=== PATIENT | female | born 1990 | race American Indian/Alaskan Native ===

== ENCOUNTER 2016-03-21 02:30 | Inpatient (IN) | payer MEDICAID ==
[2016-03-21] MEDS ORDERED: CYTOTEC ONE (02:46)
[2016-03-21] MEDS: PITOCin/NS 20 UNIT/1000ML DRIP 1,000 ML IV SCH ×2 (02:48→04:02)
--- NOTE | 2016-03-21 03:00 | Procedure Note ---
OB Delivery Note - Delivery Date of Delivery: 03/21/16 Surgeon: DAVID GALVAN Estimated blood loss: 100cc - Vaginal Delivery presentation: vertex Delivery position: OA Intrapartum events: precipitous labor- <3hr Delivery induction: none Delivery monitor: external FHT Route of delivery: Delivery placenta: spontaneous Delivery cord: 3 umbilical vessels Episiotomy: none Delivery laceration: 1st degree (Not bleeding not repaired) Anesthesia: none - Infant A at 1 minute: 8 at 5 minutes: 9 Gender: Male (Del @ 02:42 AM, infant weight is 8# 8 or 3848 gms)
--- NOTE | 2016-03-21 03:11 | History and Physical Report ---
History of Present Illness Date of examination: 03/21/16 Date of admission: 03/21/16 02:30 Chief complaint: Active labor fully dilated History of present illness: 25-year-old status post precipitous delivery at 40 weeks gestation (DARIEN 03/19/16 per pt); care was at [facility]. Records available at this time history from patient. Essential history this patient is late presentation at ~ 24 weeks, she moved from [place] one year ago. She presented to [facility] fully dilated and subsequently delivered. 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 denies: alcohol abuse, prescription drug abuse, IV drug use - Obstetrical History Expected Date of Delivery: 03/19/16 Actual Gestation: 40 Week(s) 2 Day(s) : 6 Para: 6 Number of Living Children: 5 (s/p SIDS at ~ 2 months) Review of Systems Cardiovascular: no chest pain, no lightheadedness, no shortness of breath Respiratory: no excessive sputum, no hemoptysis, no shortness of breath, no dyspnea on exertion Gastrointestinal: no abdominal pain, no nausea, no vomiting - Vital Signs Vital signs: Vital Signs Pulse Pulse Ox 85 88 03/21/16 02:42 03/21/16 02:42 Temp Pulse Resp BP Pulse Ox 76 129/58 88 03/21/16 02:56 03/21/16 02:56 03/21/16 02:42 - Physical Exam Genitourinary (Female): Positive: normal external genitalia Results All other labs normal. Assessment and Plan PPD# 0 s/p PPT delivery of term infant -stable and doing well -Active management of the third stage P: -Continue routine care -Anticipate discharge in 24-48 hours - Patient Problems (1) 40 weeks gestation of Current Visit: Yes Status: Acute (2) Precipitate labor, delivered, current hospitalization Current Visit: Yes Status: Acute (3) Grand multipara Current Visit: Yes Status: Acute
[2016-03-21] MEDS ORDERED: BENADRYL PO PRN (03:15)
[2016-03-21] MEDS ORDERED: ZOFRAN IV PRN (03:15)
[2016-03-21] MEDS ORDERED: DULCOLAX PR PRN (03:15)
[2016-03-21] MEDS ORDERED: ANUCORT-HC PR PRN (03:15)
[2016-03-21] MEDS ORDERED: PHENERGAN PO PRN (03:15)
[2016-03-21] MEDS ORDERED: LANSINOH TP PRN (03:15)
[2016-03-21] MEDS ORDERED: PHENERGAN PR PRN (03:15)
[2016-03-21] MEDS ORDERED: DERMOPLAST TP PRN (03:15)
[2016-03-21] MEDS ORDERED: MILK OF MAGNESIA PO PRN (03:15)
[2016-03-21] MEDS ORDERED: TYLENOL PO PRN (03:15)
[2016-03-21] MEDS ORDERED: NORCO 5/325 PO PRN (03:15)
[2016-03-21] MEDS ORDERED: TUCKS PAD TP PRN (03:15)
[2016-03-21] MEDS ORDERED: CYTOTEC PR ONE (03:15)
[2016-03-21] MEDS ORDERED: SENOKOT S PO SCH (04:00)
[2016-03-21] MEDS ORDERED: SODIUM CHLORIDE FLUSH SYRINGE 10 ML IV NR (04:00)
[2016-03-21] MEDS: MOTRIN PO SCH ×4 (05:36→23:35)
[2016-03-21] MEDS: FEOSOL PO SCH ×2 (11:47→23:35)
[2016-03-21] MEDS: PRENATAL VITAMIN PO SCH (11:48)
[2016-03-21] MEDS ORDERED: FLUARIX QUAD 2016-2017(36 MOS+) IM ONE (12:00)
[2016-03-21 16:40] LABS: Hemoglobin 9.4 gm/dl (10.1-14.3)
[2016-03-21] MEDS: COLACE PO SCH (23:35)
[2016-03-22] MEDS: MOTRIN PO SCH ×3 (05:43→23:38)
[2016-03-22] MEDS ORDERED: M-M-R II VACCINE SUB-Q ONE (06:00)
[2016-03-22] MEDS ORDERED: BOOSTRIX IM ONE (06:05)
--- NOTE | 2016-03-22 10:43 | Progress Note ---
Assessment and Plan A: PP Day #1 Asymptomatic Anemia P: Follow Routine PP Orders D/C in the AM RTO in 3 Week for Tubal consult Subjective - Subjective Date of service: 03/22/16 Patient reports: appetite normal, voiding normally, pain well controlled, flatus , bowel movement, ambulating normally : doing well Objective - Vital Signs Latest vital signs: Vital Signs Temp Pulse Resp BP BP 03/22/16 07:58 98.3 F 58 L 20 105/54 03/22/16 05:03 97.4 F L 51 L 18 102/69 03/21/16 15:38 98.7 F 88 20 100/64 03/21/16 11:50 98.3 F 70 20 98/54 Intake and Output 03/21/16 03/22/16 03/22/16 22:59 06:59 14:59 Intake Total 480 360 120 Balance 480 360 120 Intake: Oral 480 360 120 Other: Total, Intake Amount 240 120 120 # Voids Void 1 1 1 - Exam Breasts: Present: normal Cardiovascular: Present: Regular rate Lungs: Present: Clear to auscultation, Normal air movement Abdomen: Present: normal appearance, soft, normal bowel sounds Uterus: Present: normal, firm, fundal height below umbilicus - Labs Labs: Abnormal lab results 03/21/16 Range/Units 16:30 Hgb 9.4 L (10.1-14.3) gm/dl Hct 29.0 L (30.3-42.9) %
--- NOTE | 2016-03-22 10:46 | Discharge Summary ---
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 Hospitalization Reason for admission: active labor Delivery: Episiotomy: none Laceration: 1st degree Other procedures: none complications: none Discharge diagnosis: IUP at term delivered baby: male Condition at discharge: Poor Disposition: DISCHARGED TO HOME OR SELFCARE Plan - Provider Discharge Summary Activity: routine, no sex for 6 weeks, no heavy lifting 4 weeks, no strenuous exercise Diet: routine Instructions: routine Additional instructions: [] Smoking cessation referral if applicable(refer to patient education folder for contact #) [] Refer to [facility]'s [facility] Booklet Call your doctor immediately for: * Fever > 100.5 * Heavy vaginal bleeding ( >1 pad per hour) * Severe persistent headache * Shortness of breath * Reddened, hot, painful area to leg or breast * Drainage or odor from incision. * Keep incision clean and dry at all times and follow doctor's instructions regarding bathing/showering - Follow up plan Follow up: PRIMARY MD PERICO [Primary Care Provider] - 7 Days SARINA BRANCH CNM [Advanced Practice Nurse] - 04/12/16
[2016-03-22] MEDS: COLACE PO SCH ×3 (11:53→22:16)
[2016-03-22] MEDS: FEOSOL PO SCH ×2 (11:53→22:16)
[2016-03-22] MEDS: PRENATAL VITAMIN PO SCH (11:55)
[2016-03-22] MEDS: SENOKOT S PO SCH (13:35)
[2016-03-23] MEDS: SENOKOT S PO SCH (02:16)
[2016-03-23] MEDS: MOTRIN PO SCH ×2 (05:27→14:51)
[2016-03-23] MEDS: COLACE PO SCH (14:51)
[2016-03-23] MEDS: FEOSOL PO SCH (14:52)
[2016-03-23 18:12] VITALS: BP 100/66
== END 2016-03-23 18:55 | disposition home or self-care (01) | DRG 775 ==
LOC: LD 02:30 → OB 05:03
PROVIDERS: ADMIT Obstetrics & Gynecology; ATTEND Obstetrics & Gynecology
PROC: 10E0XZZ Delivery of Products of Conception, External Approach (ICD-10-PCS; principal; 2016-03-21)
PROC: 3E0234Z Introduction of Serum, Toxoid and Vaccine into Muscle, Percutaneous Approach (ICD-10-PCS; 2016-03-21)
DX: O62.3 Precipitate labor (principal); O70.0 First degree perineal laceration during delivery; O90.81 Anemia of the puerperium; Z86.19 Personal history of other infectious and parasitic diseases; O09.33 Supervision of pregnancy with insufficient antenatal care, third trimester; O09.43 Supervision of pregnancy with grand multiparity, third trimester; Z3A.40 40 weeks gestation of pregnancy; Z37.0 Single live birth; Z23 Encounter for immunization; Z84.82 Family history of sudden infant death syndrome
CPT/HCPCS: 36415; 85014; 85018; 86850; 86900; 86901; 90471; 90686; 90715; 99211; A6250; G0008; G0463; J2590